=== PATIENT | male | born 1960 | race Caucasian/White ===

== ENCOUNTER → 2021-10-21 10:43 | Outpatient (CLI) | payer OTHER, SELFPAY ==
[2021-10-21 19:48] LABS: BUN Creatinine Ratio 10.8 (6-22); Blood Urea Nitrogen 10 mg/dL (9-20); Calcium 9.4 mg/dL (8.4-10.2); Carbon Dioxide 28 mmol/L (22-32); Chloride 102 mmol/L (98-107); Cholesterol 164 mg/dL (140-199); Estimated Glomerular Filt Rate > 60 mL/min (>60); Glucose 95 mg/dL (80-110); HDL Cholesterol 67 mg/dL (40-60); HEMOLYSIS < 15 (0-50); LDL Cholesterol Calculated 75 mg/dL (<100); Potassium 5.1 mmol/L (3.4-5.1); Sodium 138 mmol/L (137-145); Triglycerides 110 mg/dL (35-150)
[2021-10-21 19:50] LABS: Add Manual Diff / Slide Review NO; Basophils Absolute Auto 100 /uL (0-100); Eosinophils Absolute Auto 600 /uL (0-450); HEMOLYSIS < 15 (0-50); Hematocrit 45.6 % (41-53); Hemoglobin 16.2 g/dL (13.5-17.5); Iron 156 ug/dL (49-181); Lymphocytes Absolute Auto 2200 /uL (1100-4500); Mean Corpuscular HGB Conc 35.5 % (30-36); Mean Corpuscular Hemoglobin 36.2 PG (26-34); Monocytes Absolute Auto 700 /uL (0-900); Monocytes Percent Auto 8.8 % (3-14); Neutrophils Absolute Auto 4000 /uL (1500-7000); Neutrophils Percent Auto 53.2 % (50-75); Platelet Count 219 X10^3/uL (150-400); Red Blood Cell Count 4.47 X10^6/uL (4.5-5.9); Red Cell Distribution Width 12.8 % (11.6-14.8); White Blood Cell Count 7.5 X10^3/uL (4.5-11.0)
[2021-10-21 20:01] LABS: Percent Iron Saturation 41 % (20-50); Total Iron Binding Capacity 385 ug/dL (261-462); Transferrin 304 mg/dL (206-381)
[2021-10-21 20:23] LABS: Prostate Specific Antigen Scrn 0.344 ng/mL (0.1-4.0)
[2021-10-23 17:22] LABS: Arsenic 2 ug/L (0-9); Lead, Blood 3 ug/dL (0-4)
[2021-10-27 13:18] LABS: Mercury, Blood 0
== END ==
PROVIDERS: PCP Family Medicine; Visit Provider Family Medicine
DX: I10 Essential (primary) hypertension (principal); Z12.11 Encounter for screening for malignant neoplasm of colon; Z12.5 Encounter for screening for malignant neoplasm of prostate; Z13.0 Encounter for screening for diseases of the blood and blood-forming organs and certain disorders involving the immune mechanism; Z13.1 Encounter for screening for diabetes mellitus; Z13.220 Encounter for screening for lipoid disorders; Z71.85 Encounter for immunization safety counseling; Z77.018 Contact with and (suspected) exposure to other hazardous metals
CPT/HCPCS: 80048; 80061; 82175; 83540; 83550; 83655; 83825; 85025; G0103

== ENCOUNTER → 2022-08-31 13:22 | Outpatient (CLI) | payer OTHER, SELFPAY ==
[2022-08-31 19:52] LABS: Add Manual Diff / Slide Review NO; Basophils Absolute Auto 100 /uL (0-100); Basophils Percent Auto 1.3 % (0-2); Eosinophils Absolute Auto 500 /uL (0-450); Hematocrit 39.9 % (41-53); Hemoglobin 14.1 g/dL (13.5-17.5); Lymphocytes Absolute Auto 1800 /uL (1100-4500); Lymphocytes Percent Auto 31.7 % (25-40); Mean Corpuscular HGB Conc 35.4 % (30-36); Mean Corpuscular Hemoglobin 36.3 PG (26-34); Mean Corpuscular Volume 102.6 fL (80-100); Monocytes Absolute Auto 600 /uL (0-900); Monocytes Percent Auto 10.5 % (3-14); Neutrophils Absolute Auto 2800 /uL (1500-7000); Neutrophils Percent Auto 48.5 % (50-75); Platelet Count 217 X10^3/uL (150-400); Red Blood Cell Count 3.89 X10^6/uL (4.5-5.9); Red Cell Distribution Width 13.3 % (11.6-14.8); White Blood Cell Count 5.8 X10^3/uL (4.5-11.0)
[2022-08-31 20:06] LABS: Alanine Aminotransferase 36 IU/L (<50); Albumin 3.8 g/dL (3.5-5.0); Albumin Globulin Ratio 1.3 (1.0-2.8); Alkaline Phosphatase 93 U/L (38-126); Aspartate Aminotransferase 37 IU/L (17-59); BUN Creatinine Ratio 13.3 (6-22); Bilirubin Total 0.2 mg/dL (0.2-1.3); Blood Urea Nitrogen 11 mg/dL (9-20); Calcium 8.9 mg/dL (8.4-10.2); Carbon Dioxide 29 mmol/L (22-32); Chloride 104 mmol/L (98-107); Estimated Glomerular Filt Rate > 60 mL/min (>60); Globulin 2.9 g/dL (1.7-4.1); Glucose 101 mg/dL (80-110); HEMOLYSIS < 15 (0-50); Potassium 4.6 mmol/L (3.4-5.1); Sodium 137 mmol/L (137-145); Total Protein 6.7 g/dL (6.3-8.2)
== END ==
PROVIDERS: PCP Family Medicine; Visit Provider Physician Assistant
DX: I10 Essential (primary) hypertension (principal); R53.83 Other fatigue; R79.89 Other specified abnormal findings of blood chemistry
CPT/HCPCS: 80053; 85025

== ENCOUNTER → 2022-09-13 09:26 | Outpatient (CLI) | payer OTHER, SELFPAY ==
[2022-09-15 09:49] LABS: Fecal Immunochemical Test Negative (Negative)
== END ==
PROVIDERS: PCP Family Medicine; Visit Provider Physician Assistant
DX: R79.89 Other specified abnormal findings of blood chemistry (principal); Z12.11 Encounter for screening for malignant neoplasm of colon
CPT/HCPCS: 82274

== ENCOUNTER → 2022-09-29 08:39 | Outpatient (CLI) | payer OTHER, SELFPAY ==
--- NOTE | 2022-09-29 08:40 | DI.MRI.S_ITS ---
PROCEDURE: MR PELVIS WO CON INDICATIONS: persistent sacral /coccyx pain s/p fall TECHNIQUE: Noncontrast coronal, coronal oblique, and axial T1 spin echo and STIR through the sacrum. COMPARISON: [facility] ([facility]), CR, XR SACRUM COCCYX MIN 2V, 07/20/2022, 11:54. FINDINGS: Image quality: Excellent. Bones: Mild transverse osseous edema is seen at the S4 level with suspected incomplete fracture line. Alignment is difficult to assess without sagittal images. Osseous structures are otherwise normal in signal intensity. Moderate degenerative changes at the bilateral sacroiliac joints. No signs of sacroiliitis. Degenerative changes are seen in the included lumbar spine. Soft tissues: No significant presacral edema or mass. Piriformis muscles are symmetric. Visualized lumbosacral nerve roots and lumbosacral plexus are unremarkable. Included rectum is unremarkable. IMPRESSION: 1. Nondisplaced and likely incomplete transverse fracture of the sacrum at the S4 level with mild surrounding osseous edema. 2. Moderate sacroiliac joint osteoarthrosis bilaterally. 3. Degenerative changes in the included lumbar spine. Approved by: Edwin Garcia M.D. on 09/29/2022 at 11:11
== END ==
PROVIDERS: PCP Family Medicine; Referring Provider Physician Assistant; Visit Provider Physician Assistant
DX: S32.2XXG Fracture of coccyx, subsequent encounter for fracture with delayed healing (principal); M46.1 Sacroiliitis, not elsewhere classified; M47.816 Spondylosis without myelopathy or radiculopathy, lumbar region; R60.9 Edema, unspecified; W19.XXXD Unspecified fall, subsequent encounter
CPT/HCPCS: 72195

== ENCOUNTER → 2022-11-04 13:11 | Outpatient (CLI) | payer OTHER, SELFPAY ==
[2022-11-04 20:05] LABS: Reticulocyte Count, Percent 1.7 % (0.9-2.6)
[2022-11-04 20:06] LABS: Add Manual Diff / Slide Review NO; Basophils Absolute Auto 100 /uL (0-100); Basophils Percent Auto 1.5 % (0-2); Eosinophils Absolute Auto 600 /uL (0-450); Hemoglobin 13.9 g/dL (13.5-17.5); Lymphocytes Absolute Auto 1700 /uL (1100-4500); Lymphocytes Percent Auto 21.1 % (25-40); Mean Corpuscular HGB Conc 34.7 % (30-36); Mean Corpuscular Hemoglobin 35.9 PG (26-34); Mean Corpuscular Volume 103.4 fL (80-100); Monocytes Absolute Auto 700 /uL (0-900); Monocytes Percent Auto 8.4 % (3-14); Neutrophils Absolute Auto 5100 /uL (1500-7000); Platelet Count 250 X10^3/uL (150-400); Red Blood Cell Count 3.87 X10^6/uL (4.5-5.9); Red Cell Distribution Width 13.9 % (11.6-14.8); White Blood Cell Count 8.3 X10^3/uL (4.5-11.0)
[2022-11-04 20:42] LABS: Prostate Specific Antigen Scrn 0.313 ng/mL (0.1-4.0)
[2022-11-04 20:46] LABS: Ferritin 17 ng/mL (18-464)
[2022-11-04 21:03] LABS: Vitamin B12 > 1000 pg/mL (239-931)
[2022-11-05 01:38] LABS: Free T4, Direct Thyroxine 0.88 ng/dL (0.78-2.19)
== END ==
PROVIDERS: Physician Assistant; PCP Family Medicine; Visit Provider Family Medicine
DX: D53.9 Nutritional anemia, unspecified (principal); I10 Essential (primary) hypertension; Z12.5 Encounter for screening for malignant neoplasm of prostate; Z13.220 Encounter for screening for lipoid disorders
CPT/HCPCS: 82607; 82728; 84439; 84443; 85025; 85045; G0103

== ENCOUNTER → 2022-11-08 09:28 | Outpatient (CLI) | payer OTHER, SELFPAY ==
[2022-11-08 20:23] LABS: Cortisol AM (Before 10AM) 14.4 ug/dL (4.46-22.7)
== END ==
PROVIDERS: PCP Family Medicine; Visit Provider Family Medicine
DX: D53.9 Nutritional anemia, unspecified (principal); I10 Essential (primary) hypertension
CPT/HCPCS: 82533

== ENCOUNTER → 2023-05-31 12:52 | Outpatient (CLI) | payer OTHER, SELFPAY ==
[2023-05-31 20:17] LABS: TSH w/ Reflex to FT4 0.31 uIU/mL (0.47-4.68)
[2023-05-31 20:59] LABS: Free T4, Direct Thyroxine 1.46 ng/dL (0.78-2.19)
== END ==
PROVIDERS: PCP Family Medicine; Visit Provider Family Medicine
DX: G62.9 Polyneuropathy, unspecified (principal); D53.9 Nutritional anemia, unspecified; E05.90 Thyrotoxicosis, unspecified without thyrotoxic crisis or storm
CPT/HCPCS: 84439; 84443

== ENCOUNTER → 2023-06-02 11:51 | Outpatient (CLI) | payer OTHER, SELFPAY | PROVIDERS: PCP Family Medicine; Visit Provider Family Medicine | DX: G62.9 Polyneuropathy, unspecified (principal); D53.9 Nutritional anemia, unspecified | CPT/HCPCS: 84156; 84166 ==

== ENCOUNTER → 2023-06-14 09:53 | Outpatient (CLI) | payer OTHER, SELFPAY ==
[2023-06-16 22:42] LABS: Anti Thyroglobulin Antibody <1.0 IU/mL (0.0-0.9); Thyroid Peroxidase Antibodies <9 IU/mL (0-34)
== END ==
PROVIDERS: PCP Family Medicine; Visit Provider Family Medicine
DX: E05.90 Thyrotoxicosis, unspecified without thyrotoxic crisis or storm (principal)
CPT/HCPCS: 86376; 86800

== ENCOUNTER → 2023-07-13 13:26 | Outpatient (CLI) | payer OTHER, SELFPAY ==
[2023-07-15 07:36] LABS: Thyroid Peroxidase Antibodies 14 IU/mL (0-34)
[2023-07-16 16:21] LABS: Thyroid Stimulating Immunoglob < 0.10 IU/L (0.00-0.55)
== END ==
PROVIDERS: PCP Family Medicine; Visit Provider Family Medicine
DX: E05.90 Thyrotoxicosis, unspecified without thyrotoxic crisis or storm (principal); G62.9 Polyneuropathy, unspecified
CPT/HCPCS: 84445; 86376